=== PATIENT | female | born 1960 | race Caucasian/White ===

== ENCOUNTER → 2017-06-01 | Outpatient (CLI) | payer OTHER | LOC: CIMAGING 08:15 | PROVIDERS: ATTEND Family Medicine | DX: Z12.31 Encounter for screening mammogram for malignant neoplasm of breast (principal) | CPT/HCPCS: G0202 ==

== ENCOUNTER 2019-01-03 11:44 | Observation (INO) | payer OTHER | END 2019-01-04 12:35 | disposition home or self-care (01) | LOC: CED 11:44 → CEDHOLD 13:12 → F3E 15:41 ==